=== PATIENT | male | born 1955 | race Caucasian/White ===

== ENCOUNTER 2018-07-03 18:17 | Inpatient (IN) | payer MEDICARE, MEDICAID, OTHER ==
[2018-07-03 18:46] LABS: ADD MAN DIFF? NO
[2018-07-03 18:51] LABS: BASOPHILS % 0.2 % (0.0-2.0); EOSINOPHILS # 0.1 10^3/ul (0.0-0.5); EOSINOPHILS % 2.8 % (0.0-7.0); HEMATOCRIT 38.7 % (42.0-52.0); HEMOGLOBIN 13.3 g/dl (14.0-18.0); LYMPHOCYTES # 1.1 10^3/ul (0.8-2.9); LYMPHOCYTES % 22.2 % (15.0-51.0); MEAN CORPUSCULAR HEMOGLOBIN 31.9 pg (29.0-33.0); MEAN CORPUSCULAR HGB CONC 34.4 g/dl (32.0-37.0); MEAN CORPUSCULAR VOLUME 92.8 fl (82.0-101.0); MEAN PLATELET VOLUME 8.6 fl (7.4-10.4); MONOCYTE # 0.5 10^3/ul (0.3-0.9); MONOCYTES % 9.8 % (0.0-11.0); NEUTROPHIL # 3.2 10^3/ul (1.6-7.5); NEUTROPHILS % 64.6 % (39.0-77.0); PLATELET COUNT 117 10^3/UL (140-415); RED BLOOD COUNT 4.17 10^6/ul (4.70-6.10); RED CELL DISTRIBUTION WIDTH 13.9 % (11.5-14.5)
[2018-07-03 18:51] LABS: WHITE BLOOD COUNT 4.9 10^3/ul (4.8-10.8)
[2018-07-03 19:07] LABS: ALANINE AMINOTRANSFERASE 34 IU/L (13-69); ALBUMIN/GLOBULIN RATIO 1.05; ALKALINE PHOSPHATASE 121 IU/L (42-121); ANION GAP 9 (5-13); ASPARTATE AMINO TRANSFERASE 35 IU/L (15-46); BILIRUBIN,INDIRECT 0.5 mg/dl (0-1.1); BILIRUBIN,TOTAL 0.5 mg/dl (0.2-1.3); BLOOD UREA NITROGEN 18 mg/dl (7-20); CALCIUM 9.3 mg/dl (8.4-10.2); CARBON DIOXIDE 22 mmol/L (21-31); CHLORIDE 107 mmol/L (97-110); CREATININE 1.17 mg/dl (0.61-1.24); Estimated GFR > 60 mL/min (>60); GLUCOSE 240 mg/dl (70-220); POTASSIUM 3.9 mmol/L (3.5-5.1); SODIUM 138 mmol/L (135-144); TOTAL PROTEIN 7.8 g/dl (6.1-8.1)
[2018-07-03 19:10] LABS: INR 1.23; PROTIME 15.7 Sec (11.9-14.9); PT RATIO 1.2
[2018-07-03 19:19] LABS: B-TYPE NATRIURETIC PEPTIDE 70 PG/ML (0-125); TROPONIN-I < 0.012 ng/ml (0.000-0.120)
[2018-07-03] MEDS ORDERED: ALBUTEROL/IPRATROPIUM (NEB) 3 ML AMP HHN (22:00)
[2018-07-03] MEDS ORDERED: ONDANSETRON 4 MG INJ IV (22:00)
[2018-07-03] MEDS ORDERED: ACETAMINOPHEN 325 MG TAB PO (22:00)
[2018-07-03] MEDS ORDERED: NACL 0.9% 3 ML SYG IV (22:00)
[2018-07-03] MEDS: NITROGLYCERIN (SL) 0.4 MG TAB SL (22:12)
[2018-07-03 23:05] LABS: CREATINE KINASE 72 IU/L (23-200)
[2018-07-03 23:18] LABS: CK INDEX 0.8; CK-MB 0.54 ng/ml (0.0-2.4); TROPONIN-I < 0.012 ng/ml (0.000-0.120)
[2018-07-04] MEDS: NITROGLYCERIN (SL) 0.4 MG TAB SL ×2 (00:14→00:40)
[2018-07-04] MEDS: ZOLPIDEM 5 MG TAB PO ×2 (02:39→20:57)
[2018-07-04] MEDS: QUETIAPINE 25 MG TAB PO ×2 (02:39→20:38)
[2018-07-04] MEDS: MIRTAZAPINE 15 MG TAB PO ×2 (02:39→20:57)
[2018-07-04 04:26] LABS: ADD MAN DIFF? NO
[2018-07-04 04:29] LABS: BASOPHILS % 0.4 % (0.0-2.0); EOSINOPHILS # 0.3 10^3/ul (0.0-0.5); HEMATOCRIT 37.3 % (42.0-52.0); HEMOGLOBIN 12.8 g/dl (14.0-18.0); LYMPHOCYTES # 1.4 10^3/ul (0.8-2.9); LYMPHOCYTES % 29.4 % (15.0-51.0); MEAN CORPUSCULAR HEMOGLOBIN 31.8 pg (29.0-33.0); MEAN CORPUSCULAR HGB CONC 34.3 g/dl (32.0-37.0); MEAN CORPUSCULAR VOLUME 92.8 fl (82.0-101.0); MEAN PLATELET VOLUME 8.9 fl (7.4-10.4); MONOCYTE # 0.4 10^3/ul (0.3-0.9); MONOCYTES % 9.4 % (0.0-11.0); NEUTROPHIL # 2.5 10^3/ul (1.6-7.5); NEUTROPHILS % 54.4 % (39.0-77.0); PLATELET COUNT 112 10^3/UL (140-415); RED BLOOD COUNT 4.02 10^6/ul (4.70-6.10)
[2018-07-04 04:29] LABS: WHITE BLOOD COUNT 4.7 10^3/ul (4.8-10.8)
[2018-07-04 04:43] LABS: HEMOGLOBIN A1C 6.4 % (0-5.9)
[2018-07-04 04:49] LABS: CREATINE KINASE 72 IU/L (23-200)
[2018-07-04 04:52] LABS: ALBUMIN/GLOBULIN RATIO 1.25; ANION GAP 12 (5-13); CARBON DIOXIDE 24 mmol/L (21-31); CHLORIDE 107 mmol/L (97-110); CHOL/HDL RATIO 5.9 RATIO; Estimated GFR > 60 mL/min (>60); LDL CHOLESTEROL,CALCULATED 59 mg/dl; POTASSIUM 3.7 mmol/L (3.5-5.1); SODIUM 143 mmol/L (135-144)
[2018-07-04 04:54] LABS: ALANINE AMINOTRANSFERASE 37 IU/L (13-69); ALBUMIN 3.9 g/dl (3.3-4.9); ALKALINE PHOSPHATASE 109 IU/L (42-121); ASPARTATE AMINO TRANSFERASE 31 IU/L (15-46); BILIRUBIN,INDIRECT 0.4 mg/dl (0-1.1); BILIRUBIN,TOTAL 0.4 mg/dl (0.2-1.3); BLOOD UREA NITROGEN 18 mg/dl (7-20); CALCIUM 9.1 mg/dl (8.4-10.2); CHOLESTEROL 118 mg/dl (100-200); CREATININE 1.16 mg/dl (0.61-1.24); GLUCOSE 229 mg/dl (70-220); HDL CHOLESTEROL 20 mg/dl (30-78); MAGNESIUM 1.9 mg/dl (1.7-2.5); TRIGLYCERIDES 196 mg/dl (0-149)
[2018-07-04 05:01] LABS: CK INDEX 0.7; CK-MB 0.49 ng/ml (0.0-2.4); TROPONIN-I < 0.012 ng/ml (0.000-0.120)
[2018-07-04] MEDS: ARIPIPRAZOLE 10 MG TAB PO (08:39)
[2018-07-04] MEDS: RANOLAZINE (SR) 500 MG TAB PO ×2 (08:39→20:39)
[2018-07-04] MEDS: EZETIMIBE 10 MG TAB PO (08:39)
[2018-07-04] MEDS: PANTOPRAZOLE (EC) 40 MG TAB PO (08:39)
[2018-07-04] MEDS: ASPIRIN (EC) 81 MG TAB PO (08:39)
[2018-07-04] MEDS: CHLORHEXIDINE GLUCONATE 15 ML UD CUP MM ×2 (08:39→20:36)
[2018-07-04] MEDS: ASCORBIC ACID 500 MG TAB PO ×2 (08:40→20:38)
[2018-07-04] MEDS: CLOPIDOGREL 75 MG TAB PO (08:40)
[2018-07-04] MEDS: TAMSULOSIN (SR) 0.4 MG CAP PO (08:40)
[2018-07-04] MEDS: CHOLECALCIFEROL 1,000 UNIT TAB PO ×2 (08:40→20:37)
[2018-07-04] MEDS: FOLIC ACID 1 MG TAB PO (08:40)
[2018-07-04] MEDS: ISOSORBIDE MONONITRATE(SR)60 MG TAB PO (08:40)
[2018-07-04] MEDS: DOCUSATE SODIUM 100 MG CAP PO ×2 (08:40→20:37)
[2018-07-04] MEDS: ESCITALOPRAM 10 MG TAB PO (08:40)
[2018-07-04] MEDS: ALLOPURINOL 300 MG TAB PO (08:40)
[2018-07-04] MEDS: METOPROLOL (XL) 25 MG TAB PO (08:41)
[2018-07-04] MEDS: GABAPENTIN 100 MG CAP PO ×3 (08:43→20:37)
[2018-07-04] MEDS: WARFARIN 5 MG TAB PO (17:47)
[2018-07-04] MEDS: SUCRALFATE (100 MG/ML) 10ML CUP PO ×3 (17:48→21:00)
[2018-07-04] MEDS: ATORVASTATIN 80 MG TAB PO (20:37)
[2018-07-04] MEDS: INSULIN GLARGINE [LANTus] (100 UNITS/ML) SYG SC (21:00)
[2018-07-05] MEDS ORDERED: GLUCOSE GEL 15 GRAM TUBE BUCCAL (04:30)
[2018-07-05] MEDS ORDERED: GLUCAGON 1 MG INJ IM (04:30)
[2018-07-05] MEDS ORDERED: DEXTROSE 50% 50 ML SYRINGE IV ×2 (04:30)
[2018-07-05] MEDS ORDERED: GLUCOSE GEL 15 GRAM TUBE PO ×2 (04:30)
[2018-07-05 06:39] LABS: INR 1.16; PT RATIO 1.2
[2018-07-05] MEDS: INSULIN ASPART [NOVOLOG] 3 ML PEN SC ×4 (08:02→20:59)
[2018-07-05] MEDS: ASPIRIN (EC) 81 MG TAB PO (08:52)
[2018-07-05] MEDS: ISOSORBIDE MONONITRATE(SR)60 MG TAB PO (08:52)
[2018-07-05] MEDS: METOPROLOL (XL) 25 MG TAB PO (08:53)
[2018-07-05] MEDS: EZETIMIBE 10 MG TAB PO (08:53)
[2018-07-05] MEDS: GABAPENTIN 100 MG CAP PO ×3 (08:53→20:48)
[2018-07-05] MEDS: ESCITALOPRAM 10 MG TAB PO (08:53)
[2018-07-05] MEDS: ALLOPURINOL 300 MG TAB PO (08:54)
[2018-07-05] MEDS: DOCUSATE SODIUM 100 MG CAP PO ×2 (08:54→20:48)
[2018-07-05] MEDS: PANTOPRAZOLE (EC) 40 MG TAB PO (08:54)
[2018-07-05] MEDS: ARIPIPRAZOLE 10 MG TAB PO (08:54)
[2018-07-05] MEDS: CHOLECALCIFEROL 1,000 UNIT TAB PO ×2 (08:54→20:49)
[2018-07-05] MEDS: CLOPIDOGREL 75 MG TAB PO (08:55)
[2018-07-05] MEDS: TAMSULOSIN (SR) 0.4 MG CAP PO (08:55)
[2018-07-05] MEDS: CHLORHEXIDINE GLUCONATE 15 ML UD CUP MM ×2 (08:55→20:48)
[2018-07-05] MEDS: RANOLAZINE (SR) 500 MG TAB PO ×2 (08:55→20:49)
[2018-07-05] MEDS: FOLIC ACID 1 MG TAB PO (08:55)
[2018-07-05] MEDS: SUCRALFATE (100 MG/ML) 10ML CUP PO ×4 (08:56→20:48)
[2018-07-05] MEDS: ASCORBIC ACID 500 MG TAB PO ×2 (08:56→20:49)
[2018-07-05] MEDS: ONDANSETRON 4 MG TAB PO (13:34)
[2018-07-05] MEDS: WARFARIN 5 MG TAB PO (17:34)
[2018-07-05] MEDS: QUETIAPINE 25 MG TAB PO (20:48)
[2018-07-05] MEDS: MIRTAZAPINE 15 MG TAB PO (20:49)
[2018-07-05] MEDS: ATORVASTATIN 80 MG TAB PO (20:49)
[2018-07-05] MEDS: INSULIN GLARGINE [LANTus] (100 UNITS/ML) SYG SC (20:53)
[2018-07-05] MEDS: ZOLPIDEM 5 MG TAB PO (21:02)
[2018-07-06] MEDS: ACCU-CHEK XX (01:54)
[2018-07-06] MEDS: INSULIN ASPART [NOVOLOG] 3 ML PEN SC ×5 (08:24→21:03)
[2018-07-06] MEDS: EZETIMIBE 10 MG TAB PO (09:34)
[2018-07-06] MEDS: GABAPENTIN 100 MG CAP PO ×3 (09:34→20:49)
[2018-07-06] MEDS: TAMSULOSIN (SR) 0.4 MG CAP PO (09:34)
[2018-07-06] MEDS: ALLOPURINOL 300 MG TAB PO (09:34)
[2018-07-06] MEDS: ASPIRIN (EC) 81 MG TAB PO (09:34)
[2018-07-06] MEDS: DOCUSATE SODIUM 100 MG CAP PO ×2 (09:34→20:49)
[2018-07-06] MEDS: PANTOPRAZOLE (EC) 40 MG TAB PO (09:35)
[2018-07-06] MEDS: ESCITALOPRAM 10 MG TAB PO (09:35)
[2018-07-06] MEDS: CHOLECALCIFEROL 1,000 UNIT TAB PO ×2 (09:35→20:50)
[2018-07-06] MEDS: RANOLAZINE (SR) 500 MG TAB PO ×2 (09:35→20:49)
[2018-07-06] MEDS: CLOPIDOGREL 75 MG TAB PO (09:35)
[2018-07-06] MEDS: ARIPIPRAZOLE 10 MG TAB PO (09:35)
[2018-07-06] MEDS: ASCORBIC ACID 500 MG TAB PO ×2 (09:35→20:51)
[2018-07-06] MEDS: METOPROLOL (XL) 25 MG TAB PO (09:36)
[2018-07-06] MEDS: FOLIC ACID 1 MG TAB PO (09:36)
[2018-07-06] MEDS: CHLORHEXIDINE GLUCONATE 15 ML UD CUP MM ×2 (09:48→20:49)
[2018-07-06] MEDS: ISOSORBIDE MONONITRATE(SR)60 MG TAB PO (10:17)
[2018-07-06] MEDS: SUCRALFATE (100 MG/ML) 10ML CUP PO ×4 (10:55→21:00)
[2018-07-06] MEDS: WARFARIN 5 MG TAB PO (18:18)
[2018-07-06] MEDS: QUETIAPINE 25 MG TAB PO (20:50)
[2018-07-06] MEDS: ATORVASTATIN 80 MG TAB PO (20:50)
[2018-07-06] MEDS: MIRTAZAPINE 15 MG TAB PO (20:50)
[2018-07-06] MEDS: ZOLPIDEM 5 MG TAB PO (20:53)
[2018-07-06] MEDS: INSULIN GLARGINE [LANTus] (100 UNITS/ML) SYG SC (21:03)
[2018-07-07] MEDS: ACCU-CHEK XX (02:04)
[2018-07-07 06:58] LABS: PROTIME 17.4 Sec (11.9-14.9); PT RATIO 1.4
[2018-07-07] MEDS: INSULIN ASPART [NOVOLOG] 3 ML PEN SC ×7 (08:02→21:05)
[2018-07-07] MEDS: SUCRALFATE (100 MG/ML) 10ML CUP PO ×4 (08:49→20:40)
[2018-07-07] MEDS: DOCUSATE SODIUM 100 MG CAP PO ×2 (08:50→20:41)
[2018-07-07] MEDS: EZETIMIBE 10 MG TAB PO (08:50)
[2018-07-07] MEDS: RANOLAZINE (SR) 500 MG TAB PO ×2 (08:50→20:40)
[2018-07-07] MEDS: ALLOPURINOL 300 MG TAB PO (08:50)
[2018-07-07] MEDS: CHLORHEXIDINE GLUCONATE 15 ML UD CUP MM ×2 (08:50→20:39)
[2018-07-07] MEDS: CHOLECALCIFEROL 1,000 UNIT TAB PO ×2 (08:51→20:40)
[2018-07-07] MEDS: CLOPIDOGREL 75 MG TAB PO (08:51)
[2018-07-07] MEDS: FOLIC ACID 1 MG TAB PO (08:51)
[2018-07-07] MEDS: GABAPENTIN 100 MG CAP PO ×3 (08:51→21:08)
[2018-07-07] MEDS: TAMSULOSIN (SR) 0.4 MG CAP PO (08:52)
[2018-07-07] MEDS: METOPROLOL (XL) 25 MG TAB PO (08:52)
[2018-07-07] MEDS: ASPIRIN (EC) 81 MG TAB PO (08:52)
[2018-07-07] MEDS: ISOSORBIDE MONONITRATE(SR)30 MG TAB PO ×2 (08:53→20:40)
[2018-07-07] MEDS: ESCITALOPRAM 10 MG TAB PO (08:53)
[2018-07-07] MEDS: ASCORBIC ACID 500 MG TAB PO ×2 (08:54→20:41)
[2018-07-07] MEDS: LINAGLIPTIN 5 MG TABLET PO (08:54)
[2018-07-07] MEDS: ARIPIPRAZOLE 10 MG TAB PO (08:55)
[2018-07-07] MEDS: PANTOPRAZOLE (EC) 40 MG TAB PO (08:55)
[2018-07-07] MEDS ORDERED: hydrOXYzine PAMOATE 25 MG CAP PO (16:00)
[2018-07-07] MEDS: WARFARIN 5 MG TAB PO (17:12)
[2018-07-07] MEDS: QUETIAPINE 25 MG TAB PO ×2 (17:12→21:00)
[2018-07-07] MEDS: QUETIAPINE 100 MG TAB PO (20:40)
[2018-07-07] MEDS: ATORVASTATIN 80 MG TAB PO (20:40)
[2018-07-07] MEDS: ZOLPIDEM 5 MG TAB PO (20:41)
[2018-07-07] MEDS: MIRTAZAPINE 15 MG TAB PO (20:42)
[2018-07-07] MEDS: INSULIN GLARGINE [LANTus] (100 UNITS/ML) SYG SC (21:05)
[2018-07-07 22:08] LABS: ADD UMIC NO; UR ASCORBIC ACID 20 mg/dL (NEGATIVE); UR BILIRUBIN (Dip) NEGATIVE (NEGATIVE); UR BLOOD (Dip) NEGATIVE (NEGATIVE); UR CLARITY CLEAR (CLEAR); UR COLOR YELLOW (YELLOW); UR GLUCOSE (Dip) 2+ mg/dL (NEGATIVE); UR KETONES (Dip) NEGATIVE (NEGATIVE); UR LEUKOCYTE ESTERASE (Dip) NEGATIVE Leu/ul (NEGATIVE); UR NITRITE (Dip) NEGATIVE (NEGATIVE); UR TOTAL PROTEIN (Dip) NEGATIVE (NEGATIVE); UR UROBILINOGEN (Dip) NEGATIVE (NEGATIVE)
[2018-07-08 06:35] LABS: ADD MAN DIFF? NO
[2018-07-08 06:43] LABS: BASOPHILS % 0.2 % (0.0-2.0); EOSINOPHILS # 0.3 10^3/ul (0.0-0.5); EOSINOPHILS % 6.6 % (0.0-7.0); HEMATOCRIT 36.5 % (42.0-52.0); HEMOGLOBIN 12.5 g/dl (14.0-18.0); LYMPHOCYTES # 1.4 10^3/ul (0.8-2.9); MEAN CORPUSCULAR HGB CONC 34.2 g/dl (32.0-37.0); MEAN CORPUSCULAR VOLUME 93.4 fl (82.0-101.0); MEAN PLATELET VOLUME 9.3 fl (7.4-10.4); MONOCYTE # 0.5 10^3/ul (0.3-0.9); MONOCYTES % 9.1 % (0.0-11.0); NEUTROPHIL # 2.7 10^3/ul (1.6-7.5); NEUTROPHILS % 54.7 % (39.0-77.0); PLATELET COUNT 108 10^3/UL (140-415); RED BLOOD COUNT 3.91 10^6/ul (4.70-6.10); RED CELL DISTRIBUTION WIDTH 13.9 % (11.5-14.5)
[2018-07-08 07:28] LABS: ALBUMIN 3.5 g/dl (3.3-4.9); ANION GAP 11 (5-13); BLOOD UREA NITROGEN 16 mg/dl (7-20); CALCIUM 8.9 mg/dl (8.4-10.2); CARBON DIOXIDE 25 mmol/L (21-31); CHLORIDE 107 mmol/L (97-110); CREATININE 1.08 mg/dl (0.61-1.24); GLUCOSE 277 mg/dl (70-220); MAGNESIUM 1.7 mg/dl (1.7-2.5); PHOSPHORUS 3.8 mg/dl (2.5-4.9); SODIUM 143 mmol/L (135-144)
[2018-07-08] MEDS: INSULIN ASPART [NOVOLOG] 3 ML PEN SC ×7 (08:05→20:29)
[2018-07-08] MEDS: ALLOPURINOL 300 MG TAB PO (08:20)
[2018-07-08] MEDS: EZETIMIBE 10 MG TAB PO (08:20)
[2018-07-08] MEDS: ESCITALOPRAM 10 MG TAB PO (08:20)
[2018-07-08] MEDS: ARIPIPRAZOLE 10 MG TAB PO (08:21)
[2018-07-08] MEDS: METOPROLOL (XL) 25 MG TAB PO (08:21)
[2018-07-08] MEDS: TAMSULOSIN (SR) 0.4 MG CAP PO (08:21)
[2018-07-08] MEDS: CLOPIDOGREL 75 MG TAB PO (08:22)
[2018-07-08] MEDS: PANTOPRAZOLE (EC) 40 MG TAB PO (08:22)
[2018-07-08] MEDS: LINAGLIPTIN 5 MG TABLET PO (08:22)
[2018-07-08] MEDS: ISOSORBIDE MONONITRATE(SR)30 MG TAB PO ×2 (08:23→20:17)
[2018-07-08] MEDS: ASCORBIC ACID 500 MG TAB PO ×2 (08:23→20:16)
[2018-07-08] MEDS: RANOLAZINE (SR) 500 MG TAB PO ×2 (08:23→20:15)
[2018-07-08] MEDS: DOCUSATE SODIUM 100 MG CAP PO ×2 (08:23→20:14)
[2018-07-08] MEDS: CHOLECALCIFEROL 1,000 UNIT TAB PO ×2 (08:24→20:16)
[2018-07-08] MEDS: CHLORHEXIDINE GLUCONATE 15 ML UD CUP MM ×2 (08:24→20:13)
[2018-07-08] MEDS: ASPIRIN (EC) 81 MG TAB PO (08:24)
[2018-07-08] MEDS: GABAPENTIN 100 MG CAP PO ×3 (08:24→20:15)
[2018-07-08] MEDS: FOLIC ACID 1 MG TAB PO (08:24)
[2018-07-08] MEDS: SUCRALFATE (100 MG/ML) 10ML CUP PO ×4 (08:24→20:13)
[2018-07-08] MEDS: WARFARIN 5 MG TAB PO (17:14)
[2018-07-08] MEDS: QUETIAPINE 25 MG TAB PO (17:25)
[2018-07-08] MEDS: QUETIAPINE 100 MG TAB PO (20:14)
[2018-07-08] MEDS: ZOLPIDEM 5 MG TAB PO (20:14)
[2018-07-08] MEDS: ATORVASTATIN 80 MG TAB PO (20:16)
[2018-07-08] MEDS: MIRTAZAPINE 15 MG TAB PO (20:17)
[2018-07-08] MEDS: INSULIN GLARGINE [LANTus] (100 UNITS/ML) SYG SC (20:29)
[2018-07-09 07:12] LABS: PROTIME 18.4 Sec (11.9-14.9); PT RATIO 1.4
[2018-07-09] MEDS: INSULIN ASPART [NOVOLOG] 3 ML PEN SC ×7 (08:23→20:50)
[2018-07-09] MEDS: CHLORHEXIDINE GLUCONATE 15 ML UD CUP MM ×2 (08:24→20:43)
[2018-07-09] MEDS: CHOLECALCIFEROL 1,000 UNIT TAB PO ×2 (08:25→20:47)
[2018-07-09] MEDS: ASCORBIC ACID 500 MG TAB PO ×2 (08:25→20:46)
[2018-07-09] MEDS: RANOLAZINE (SR) 500 MG TAB PO ×2 (08:25→20:46)
[2018-07-09] MEDS: ISOSORBIDE MONONITRATE(SR)30 MG TAB PO ×2 (08:33→20:45)
[2018-07-09] MEDS: ARIPIPRAZOLE 10 MG TAB PO (08:33)
[2018-07-09] MEDS: CLOPIDOGREL 75 MG TAB PO (08:33)
[2018-07-09] MEDS: PANTOPRAZOLE (EC) 40 MG TAB PO (08:33)
[2018-07-09] MEDS: ALLOPURINOL 300 MG TAB PO (08:33)
[2018-07-09] MEDS: SUCRALFATE (100 MG/ML) 10ML CUP PO ×4 (08:33→20:44)
[2018-07-09] MEDS: GABAPENTIN 100 MG CAP PO ×3 (08:33→20:46)
[2018-07-09] MEDS: TAMSULOSIN (SR) 0.4 MG CAP PO (08:33)
[2018-07-09] MEDS: FOLIC ACID 1 MG TAB PO (08:34)
[2018-07-09] MEDS: LINAGLIPTIN 5 MG TABLET PO (08:34)
[2018-07-09] MEDS: ASPIRIN (EC) 81 MG TAB PO (08:34)
[2018-07-09] MEDS: ESCITALOPRAM 10 MG TAB PO (08:34)
[2018-07-09] MEDS: EZETIMIBE 10 MG TAB PO (08:34)
[2018-07-09] MEDS: DOCUSATE SODIUM 100 MG CAP PO ×2 (08:34→20:44)
[2018-07-09] MEDS: METOPROLOL (XL) 25 MG TAB PO (08:34)
[2018-07-09] MEDS: QUETIAPINE 25 MG TAB PO (17:19)
[2018-07-09] MEDS: WARFARIN 5 MG TAB PO (17:19)
[2018-07-09] MEDS: ZOLPIDEM 5 MG TAB PO (20:44)
[2018-07-09] MEDS: ATORVASTATIN 80 MG TAB PO (20:45)
[2018-07-09] MEDS: MIRTAZAPINE 15 MG TAB PO (20:46)
[2018-07-09] MEDS: QUETIAPINE 100 MG TAB PO (20:46)
[2018-07-09] MEDS: INSULIN GLARGINE [LANTus] (100 UNITS/ML) SYG SC (20:49)
[2018-07-10] MEDS: INSULIN ASPART [NOVOLOG] 3 ML PEN SC ×2 (07:40→07:41)
[2018-07-10] MEDS: GABAPENTIN 100 MG CAP PO (08:14)
[2018-07-10] MEDS: SUCRALFATE (100 MG/ML) 10ML CUP PO (08:14)
[2018-07-10] MEDS: CHLORHEXIDINE GLUCONATE 15 ML UD CUP MM (08:14)
[2018-07-10] MEDS: PANTOPRAZOLE (EC) 40 MG TAB PO (08:14)
[2018-07-10] MEDS: DOCUSATE SODIUM 100 MG CAP PO (08:14)
[2018-07-10] MEDS: CHOLECALCIFEROL 1,000 UNIT TAB PO (08:15)
[2018-07-10] MEDS: METOPROLOL (XL) 25 MG TAB PO (08:15)
[2018-07-10] MEDS: ESCITALOPRAM 10 MG TAB PO (08:15)
[2018-07-10] MEDS: CLOPIDOGREL 75 MG TAB PO (08:15)
[2018-07-10] MEDS: EZETIMIBE 10 MG TAB PO (08:15)
[2018-07-10] MEDS: ALLOPURINOL 300 MG TAB PO (08:15)
[2018-07-10] MEDS: ASCORBIC ACID 500 MG TAB PO (08:15)
[2018-07-10] MEDS: LINAGLIPTIN 5 MG TABLET PO (08:16)
[2018-07-10] MEDS: ARIPIPRAZOLE 10 MG TAB PO (08:16)
[2018-07-10] MEDS: FOLIC ACID 1 MG TAB PO (08:16)
[2018-07-10] MEDS: ISOSORBIDE MONONITRATE(SR)30 MG TAB PO (08:16)
[2018-07-10] MEDS: RANOLAZINE (SR) 500 MG TAB PO (08:16)
[2018-07-10] MEDS: ASPIRIN (EC) 81 MG TAB PO (08:17)
[2018-07-10] MEDS: TAMSULOSIN (SR) 0.4 MG CAP PO (08:17)
== END 2018-07-10 12:20 | DRG 880 ==
LOC: TEL 21:09 → E/R 18:17
DX: F41.9 Anxiety disorder, unspecified (principal); E66.9 Obesity, unspecified; I25.10 Atherosclerotic heart disease of native coronary artery without angina pectoris; Z68.36 Body mass index [BMI] 36.0-36.9, adult; Z95.5 Presence of coronary angioplasty implant and graft; Z86.73 Personal history of transient ischemic attack (TIA), and cerebral infarction without residual deficits; Z87.891 Personal history of nicotine dependence; Z95.2 Presence of prosthetic heart valve; I48.0 Paroxysmal atrial fibrillation; Z79.01 Long term (current) use of anticoagulants; R10.31 Right lower quadrant pain; E78.5 Hyperlipidemia, unspecified; F39 Unspecified mood [affective] disorder; E11.40 Type 2 diabetes mellitus with diabetic neuropathy, unspecified; R07.89 Other chest pain
CPT/HCPCS: 70450; 70551; 71045; 74176; 80053; 80061; 80069; 81003; 82550; 82553; 82962; 83036; 83735; 83880; 84443; 84484; 85025; 85610; 93005; 93306; 94660; 97161; 97166; 99285-25